=== PATIENT | male | born 1975 | race Two or more races ===

== ENCOUNTER 2023-09-12 15:38 | Emergency (ER) | payer OTHER ==
[2023-09-12 15:47] VITALS: BP 143/86; PULSE 79; RESP 20; TEMP 98; BMI 32.5
[2023-09-12] MEDS ORDERED: ONDANSETRON 4 MG/2 ML VIAL IVPUSH ONE (17:00)
[2023-09-12] MEDS ORDERED: FAMOTIDINE 20 MG/50 ML IVPB 20 MG/50 ML MG IVPB ONE ×2 (17:00→17:10)
[2023-09-12] MEDS ORDERED: LACTATED RINGERS SOLUTION 1000 ML INFUS.BAG IV ONE (17:10)
[2023-09-12] MEDS ORDERED: ONDANSETRON 4 MG/2 ML VIAL ONE (17:10)
[2023-09-12 17:58] LABS: BASO % 1.2 % (0-2.0); EOS % 7.8 % (0-4.5); HEMATOCRIT 39.9 % (35.4-49); HEMOGLOBIN 13.6 GM/dL (11.7-16.9); MCH 30.5 pg (25.7-33.7); MCHC 34.1 g/dl (32.0-35.9); MEAN CELL VOLUME 89.7 fl (80-96); MEAN PLT VOLUME 8.2 fl (7.5-11.1); PLATELET COUNT 364 10^3/uL (134-434); RBC 4.45 M/mm3 (4.00-5.60); RDW 13.3 % (11.9-15.9); WHITE BLOOD COUNT 8.2 K/mm3 (4.0-10.0)
[2023-09-12 18:15] LABS: POTASSIUM 4.1 mmol/L (3.5-5.1)
[2023-09-12 18:17] LABS: CALCIUM 9.1 mg/dL (8.5-10.1)
[2023-09-12 18:18] LABS: ALBUMIN 4.2 g/dl (3.4-5.0); BLOOD UREA NITROGEN 15.6 mg/dL (7-18); MAGNESIUM 2.2 mg/dL (1.8-2.4)
[2023-09-12 18:22] LABS: BILIRUBIN,TOTAL 0.8 mg/dL (0.2-1); TOT PROT 8.1 g/dl (6.4-8.2)
[2023-09-12] MEDS ORDERED: MINERAL OIL ENEMA 133 ML ENEMA RC ONE (19:23)
[2023-09-12] MEDS ORDERED: DOCUSATE SODIUM 100 MG CAPSULE (FP) PO ONE ×2 (19:23→19:32)
[2023-09-12] MEDS ORDERED: POLYETHYLENE GLYCOL (HEALTHYLAX) 3350 17 GM PACKET PO SCH (19:30)
[2023-09-12] MEDS ORDERED: POLYETHYLENE GLYCOL (HEALTHYLAX) 3350 17 GM PACKET ONE (19:32)
== END 2023-09-12 20:33 | disposition home or self-care (01) ==
LOC: JER 15:38
PROC: 3E033GC Introduction of Other Therapeutic Substance into Peripheral Vein, Percutaneous Approach (ICD-10-PCS; principal; 2023-09-12)
PROC: 3E033GC Introduction of Other Therapeutic Substance into Peripheral Vein, Percutaneous Approach (ICD-10-PCS; 2023-09-12)
DX: R10.12 Left upper quadrant pain (principal); R07.9 Chest pain, unspecified; R06.02 Shortness of breath; K59.00 Constipation, unspecified
CPT/HCPCS: 36415; 71046-TC-FY; 74177-TC; 80053; 83690; 83735; 84484; 85025; 93005; 93010; 99285-25; Q9967